=== PATIENT | male | born 1990 | race Caucasian/White ===

== ENCOUNTER → 2021-07-30 | Outpatient (CLI) | payer BC ==
[~2021-07-30] MED LIST: LORTAB 5/500 501 TAB PO; NO HOME MEDICATIONS
== END ==
LOC: COL.RAD 08:45
DX: M19.012 Primary osteoarthritis, left shoulder (principal); M75.52 Bursitis of left shoulder

== ENCOUNTER → 2022-02-04 | Outpatient (CLI) | payer BC | LOC: COL.RAD 12:49 | DX: M51.34 Other intervertebral disc degeneration, thoracic region (principal) ==